=== PATIENT | male | born 2000 | race Caucasian/White ===

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

== ENCOUNTER 2022-04-11 10:30 | Emergency (ER) | payer BC, SELFPAY ==
[2022-04-11 10:55] VITALS: BP 124/60; PULSE 58; RESP 14; TEMP 36.7; O2SAT 100
--- NOTE | 2022-04-11 11:17 | ED.EAR ---
HPI - Ear Problem General Chief complaint: Ear Stated complaint: Ear Pain Time Seen by Provider: 04/11/22 11:18 History of Present Illness HPI Narrative: Patient presents with right ear pain. Patient denies any drainage from his ear denies any fever denies any recent URI symptoms. Related Data Allergies Allergy/AdvReac Type Severity Reaction Status Date / Time No Known Allergies Allergy Verified 04/11/22 11:10 Review of Systems Review of Systems: CONSTITUTIONAL: Denies chills, or sweats. Reports fever and generalized body aches EYES: Denies visual changes, redness, or discharge. ENT: Denies otalgia. Reports nasal congestion runny nose and sore throat CARDIOVASCULAR: Denies chest pain, palpitations, or edema. RESPIRATORY: Denies dyspnea. Reports occasional cough GASTROINTESTINAL: Denies abdominal pain, nausea, vomiting, or diarrhea. GENITOURINARY: Denies dysuria or hematuria. SKIN: Denies rash or itching. MUSCULOSKELETAL: Denies back pain, joint pain, or myalgia. Reports generalized body aches NEUROLOGIC: Denies headache, numbness, or weakness. PSYCHIATRIC: Denies anxiety or depression. [facility] Social History Social History (Updated 01/30/20 @ 15:34 by Deepa Mercado NP) Smoking status: Never smoker Alcohol intake: never Substance use: never Gender identity (if verbalized by the patient): Male Comments At time of signature, agree with nursing past medical, surgical, social and family history. There is no relevant family history pertinent to the presenting complaint Exam Narrative: GENERAL: Well-appearing, well-nourished, and in no acute distress. HEAD: Normocephalic, atraumatic. EYES: PERRLA and EOMI. ENT: Nares clear, no rhinorrhea or epistaxis. Mucous membranes moist. NECK: Supple. CHEST: Clear to auscultation. No respiratory distress. HEART: Regular rate and rhythm. No murmur heard. Normal peripheral pulses. ABDOMEN: Soft, nontender, nondistended, normal active bowel sounds. EXTREMITIES: Normal range of motion. No edema. SKIN: Warm, dry, no rash. NEURO: No focal deficits. Alert and oriented x3. Edin Coma Scale Eye Opening: Spontaneous 4 Marcella Coma Scale Motor: Obeys Commands 6 Marcella Coma Scale Verbal: Oriented 5 Edin Coma Scale Total 15 HENMT: Ears: Abnormal EAC present (tenderness with movement of ear swelling to canal) EAC tenderness Course Course Level of Care: Express Care Visit Vital Signs Vital signs: Vital Signs Temperature 36.7 C 04/11/22 10:55 Pulse Rate 58 L 04/11/22 10:55 Respiratory Rate 14 04/11/22 10:55 Blood Pressure 124/60 04/11/22 10:55 Pulse Oximetry 100 04/11/22 10:55 Oxygen Delivery Room Air 04/11/22 10:55 Temperature 36.7 C 04/11/22 10:55 Pulse Rate 58 L 04/11/22 10:55 Respiratory Rate 14 04/11/22 10:55 Blood Pressure 124/60 04/11/22 10:55 Pulse Oximetry 100 04/11/22 10:55 Oxygen Delivery Room Air 04/11/22 10:55 Medical Decision Making Vital Signs Vital Signs: Vital Signs Temperature 36.7 C 04/11/22 10:55 Pulse Rate 58 L 04/11/22 10:55 Respiratory Rate 14 04/11/22 10:55 Blood Pressure 124/60 04/11/22 10:55 Pulse Oximetry 100 04/11/22 10:55 Oxygen Delivery Room Air 04/11/22 10:55 Temperature 36.7 C 04/11/22 10:55 Pulse Rate 58 L 04/11/22 10:55 Respiratory Rate 14 04/11/22 10:55 Blood Pressure 124/60 04/11/22 10:55 Pulse Oximetry 100 04/11/22 10:55 Oxygen Delivery Room Air 04/11/22 10:55 Discharge Plan Discharge Clinical Impression: Otitis externa Patient Disposition: Home, Self-Care Condition: Stable Instructions: Antibiotic Form, Swimmer's Ear (AC) Additional Instructions: Can use a heating pad on ear or a warm wet washcloth to the outer ear for approximate 20 minutes as needed for pain, this may help with the drainage no swimming until symptoms are gone try to keep the ear canals dry: After baths, showers, hair washing, swimming, turn
== END 2022-04-11 11:30 | disposition home or self-care (01) ==
PROVIDERS: Emergency Provider Nurse Practitioner Family; PCP Family Medicine
DX: H60.91 Unspecified otitis externa, right ear (principal)
CPT/HCPCS: 99213; G0463